=== PATIENT | male | born 1950 ===

== ENCOUNTER 2018-10-26 07:49 | Day surgery (SDC) | payer OTHER ==
[~2018-10-26 07:49] MED LIST: ACID REDUCER10 MG PO; ALLEGRA ALLERGY60 MG PO; ASPIRIN81 M1 PO; BISACODYL10 MG; CARAFATE1 GM PO; HUMALIN; IRBESARTAN PO; LANTUS; METROPOL PO; MORPHINE IV; PROBIOTIC1 EAC2 PO; PROTONIX40 MG PO; REGLAN5 MG/5 ML PO; SEPTRA PO; SINGULAIR10 MG PO; TAMS0.4C PO; ZYRTEC10 M3 PO; [UNRECOGNIZED DRUG - OTHER] PO; [UNRECOGNIZED DRUG - OTHER] PO; [UNRECOGNIZED DRUG - OTHER] PO; [UNRECOGNIZED DRUG - REMARK] PO
[2018-10-26] MEDS ORDERED: PERCOCET 5-3251 EACH PO (11:38)
== END 2018-10-26 15:00 | disposition home or self-care (01) ==
LOC: CIR.AMB 07:49
DX: R15.9 Full incontinence of feces (principal)
CPT/HCPCS: 64590; C1767